=== PATIENT | female | born 1940 | race Caucasian/White ===

== ENCOUNTER 2017-01-30 23:12 | Emergency (ER) | payer OTHER ==
[~2017-01-30] VITALS: Ht 165.1 cm; Wt 98.2 kg
[~2017-01-30 23:12] MED LIST: CALCIO DEL MAR500 MG PO; LANTUS100 UNIT/1 SQ; MILLIPRED DP5 MG PO; NOVOLOG100 UNIT/3 SQ; PRAVASTATIN SOD10 MG PO; PRINIVIL5 MG PO; SYNTHROID25 MCG PO; VITAMIN A8000 UNIT PO
[2017-01-31 02:06] VITALS: BP 153/84
== END 2017-01-31 02:09 | disposition home or self-care (01) ==
LOC: EXP 23:12 → EME 23:12 → EXP 01-31 02:09
DX: S80.02XA Contusion of left knee, initial encounter (principal); S80.212A Abrasion, left knee, initial encounter; W01.198A Fall on same level from slipping, tripping and stumbling with subsequent striking against other object, initial encounter; I10 Essential (primary) hypertension; E78.5 Hyperlipidemia, unspecified; E11.9 Type 2 diabetes mellitus without complications; Z79.4 Long term (current) use of insulin
CPT/HCPCS: 73564; 99281; 99282

== ENCOUNTER 2017-02-04 16:58 | Emergency (ER) | payer OTHER ==
[~2017-02-04] VITALS: Ht 165.1 cm; Wt 98.0 kg
[2017-02-04] MEDS ORDERED: KEFLEX500 MG PO (18:38)
[2017-02-04 18:48] VITALS: BP 130/58
== END 2017-02-04 18:53 | disposition home or self-care (01) ==
LOC: EME 16:58
PROC: 3E0234Z Introduction of Serum, Toxoid and Vaccine into Muscle, Percutaneous Approach (ICD-10-PCS; principal; 2017-02-04)
DX: L03.115 Cellulitis of right lower limb (principal); S80.921A Unspecified superficial injury of right lower leg, initial encounter; E11.9 Type 2 diabetes mellitus without complications; I10 Essential (primary) hypertension; E78.5 Hyperlipidemia, unspecified; Z79.4 Long term (current) use of insulin
CPT/HCPCS: 99281; 99283